=== PATIENT | female | born 1970 | race Two or more races ===

== ENCOUNTER 2023-03-05 17:59 | Emergency (ER) | payer OTHER, SELFPAY ==
[2023-03-05 19:12] LABS: Absolute Lymphocytes (CBC) 3.2 K/uL (0.7-4.9); Hematocrit 38.5 % (36.0-45.0); Lymphocytes % 47.8 % (15.3-44.8); MCV 89.8 fL (80-100); RBC Red Blood Cell Count 4.28 M/uL (3.86-4.86)
[2023-03-05 19:35] LABS: BUN Blood Urea Nitrogen 11 mg/dL (7-18); Bicarbonate 29 mEq/L (21-32); Glomerular Filtration Rate 98 ml/min (=/>90); Glucose Level 91 mg/dL (74-106); Potassium 3.9 mEq/L (3.5-5.1); Sodium Level 145 mEq/L (136-145)
[2023-03-05 19:38] LABS: Troponin High Sensitivity < 3.0 pg/mL (<58.9)
[2023-03-05] MEDS ORDERED: FAMOTIDINE 20 MG TAB ONE (20:09)
[2023-03-05] MEDS ORDERED: CETIRIZINE HCL 5 MG TABLET ONE (20:09)
--- NOTE | 2023-03-05 21:01 | ER ---
Nurse's Notes [facility] Name: Marline Escamilla Age: 52 yrs Sex: Female : 1970 Arrival Date: 03/05/2023 Time: 17:59 Bed 8 Private MD: Diagnosis: Edema, unspecified;Allergic rhinitis, unspecified;Acute serous otitis media, right ear Presentation: 03/05 18:18 Chief complaint: Patient states: woke up this morning with NIKKY hand swelling that has vg1 subsided, also noticed later in day NIKKY feet swelling that has also subsided and then noticed swelling to face and decide then to come to ED. Spouse stated facial swelling is starting to subside. Pt states was recently dx with an autoimmune disease, was positive for "Autoimmune Inflammatory marker" and was referred to Rheumatology. Coronavirus screen: Vaccine status: Patient reports receiving the 2nd dose of the covid vaccine. Client denies travel out of the [place] in the last 14 days. Ebola Screen: Patient negative for fever greater than or equal to 101.5 degrees Fahrenheit, and additional compatible Ebola Virus Disease symptoms Patient denies exposure to infectious person. Patient denies travel to an Ebola-affected area in the 21 days before illness onset. Initial Sepsis Screen: Does the patient meet any 2 criteria? No. Patient's initial sepsis screen is negative. Does the patient have a suspected source of infection? No. Patient's initial sepsis screen is negative. Risk Assessment: Do you want to hurt yourself or someone else? Patient reports no desire to harm self or others. Onset of symptoms was March 05, 2023. 18:18 Method Of Arrival: Ambulatory vg1 18:18 Acuity: LALITA 3 vg1 Triage Assessment: 18:21 General: Appears uncomfortable, Behavior is cooperative. Pain: Complains of pain in vg1 right foot and left foot Pain currently is 5 out of 10 on a pain scale. Neuro: Level of Consciousness is awake, alert, obeys commands, Oriented to person, place, time, situation. Musculoskeletal: Circulation, motion, and sensation intact. 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 - Social history:: Smoking status: Patient denies any tobacco usage or history of. Screenin:15 [facility] ED Fall Risk Assessment (Adult) History of falling in the last 3 months, rv including since admission No falls in past 3 months (0 pts). Abuse screen: Denies threats or abuse. Denies injuries from another. Nutritional screening: No deficits noted. Tuberculosis screening: No symptoms or risk factors identified. Assessment: 19:13 General: Appears comfortable, Behavior is calm, cooperative. Pain: Complains of pain in rv chest. Neuro: Level of Consciousness is awake, alert, obeys commands, Oriented to person, place, time, situation. Cardiovascular: Capillary refill < 3 seconds Rhythm is sinus rhythm Chest pain quality is sharp, is located in anterior. 20:04 Reassessment: Patient appears in no apparent distress at this time. Patient and/or as6 family updated on plan of care and expected duration. Pain level reassessed. Patient is alert, oriented x 3, equal unlabored respirations, skin warm/dry/pink. Vital Signs: 18:18 BP 113 / 77; Pulse 80; Resp 16; Temp 98.1(TE); Pulse Ox 100% on R/A; Weight 65.77 kg; vg1 Height 5 ft. 7 in. ; Pain 5/10; 18:59 BP 115 / 79; Pulse 77; Resp 18; Pulse Ox 100% on R/A; ld1 20:04 BP 112 / 80; Pulse 80; Resp 18 S; Pulse Ox 100% on R/A; as6 21:04 BP 116 / 81; Pulse 78; Resp 18; Temp 98.1(O); Pulse Ox 99% on R/A; rv 18:18 Body Mass Index 22.71 (65.77 kg, 170.18 cm) vg1 18:18 Pain Scale: Adult vg1 Joseph Coma Score: 21:04 Eye Response: spontaneous(4). Motor Response: obeys commands(6). Verbal Response: rv oriented(5). Total: 15. ED Course: 18:01 Patient arrived in ED. rg4 18:21 Triage completed. vg1 18:21 Arm band placed on. vg1 18:54 Cricket Cheney, DUANE is Primary Nurse. ll1 18:54 Inserted saline lock: 22 gauge in right antecubital area, using aseptic technique. ll1 Blood collected. 19:02 Melva Ratliff FNP-C is PSYCHIATRICP. snw 19:02 Rafat Jenkins MD is Attending Physician. snw 19:16 Patient has correct armband on for positive identification. Placed in gown. Bed in low rv position. Call light in reach. Client placed on continuous cardiac and pulse oximetry monitoring. NIBP monitoring applied. hall monitor on. 20:59 No provider procedures requiring assistance completed. IV discontinued, intact, as6 bleeding controlled, No redness/swelling at site. Pressure dressing applied. Administered Medications: 20:04 Drug: Famotidine PO 20 mg Route: PO; as6 20:28 Follow up: Response: No adverse reaction as6 20:04 Drug: ZyrTEC - Cetirizine PO 10 mg Route: PO; as6 20:28 Follow up: Response: No adverse reaction as6 Medication: 19:16 VIS not applicable for this client. rv Outcome: 21:00 Discharge ordered by . snw 21:06 Discharged to home ambulatory, with family. rv 21:06 Condition: improved 21:06 Discharge instructions given to patient, Instructed on discharge instructions, follow up and referral plans. medication usage, Demonstrated understanding of instructions, follow-up care, medications, Prescriptions given X 2. 21:06 Patient left the ED. rv Signatures: Melva Ratliff FNP-C FNP-Lyndsey Wood rg4 David Hernandez RN RN rv Abigail Luis, RN RN arnel1 Cricket Cheney RN RN ll1 Eulalia Fields, DUANE RN morro1 Bernard Zamora RN RN as6
--- NOTE | 2023-03-05 21:01 | EDPHYS ---
Physician Documentation [facility] Name: Marline Escamilla Age: 52 yrs Sex: Female : 1970 Arrival Date: 03/05/2023 Time: 17:59 Bed 8 Private MD: ED Physician Rafat Jenkins HPI: 03/05 20:00 This 52 yrs old Female presents to ER via Ambulatory with complaints of Facial snw Swelling, Hand Swelling, Feet Swelling. 20:00 pt states she is just not feeling well, right face, eye, and head feel full, partner snw noted swelling to right jaw today. Onset: The symptoms/episode began/occurred acutely. Severity of symptoms: At their worst the symptoms were mild moderate in the emergency department the symptoms are unchanged. It is unknown whether or not the patient has had similar symptoms in the past. It is unknown whether or not the patient has recently seen a physician. 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 - Social history:: Smoking status: Patient denies any tobacco usage or history of. ROS: 19:58 Constitutional: Negative for fever, chills, and weight loss, Eyes: Negative for injury, snw pain, redness, and discharge. 19:58 ENT: Positive for nasal discharge, sinus congestion, right side of face with swelling that has now resolved. Exam: 19:58 Constitutional: This is a well developed, well nourished patient who is awake, alert, snw and in no acute distress. Head/Face: Normocephalic, atraumatic. Eyes: Pupils equal round and reactive to light, extra-ocular motions intact. Lids and lashes normal. Conjunctiva and sclera are non-icteric and not injected. Cornea within normal limits. Periorbital areas with no swelling, redness, or edema. Neck: Trachea midline, no thyromegaly or masses palpated, and no cervical lymphadenopathy. Supple, full range of motion without nuchal rigidity, or vertebral point tenderness. No Meningismus. Chest/axilla: Normal chest wall appearance and motion. Nontender with no deformity. No lesions are appreciated. Cardiovascular: Regular rate and rhythm with a normal S1 and S2. No gallops, murmurs, or rubs. Normal PMI, no JVD. No pulse deficits. Respiratory: Lungs have equal breath sounds bilaterally, clear to auscultation and percussion. No rales, rhonchi or wheezes noted. No increased work of breathing, no retractions or nasal flaring. Abdomen/GI: Soft, non-tender, with normal bowel sounds. No distension or tympany. No guarding or rebound. No evidence of tenderness throughout. Back: No spinal tenderness. No costovertebral tenderness. Full range of motion. Skin: Warm, dry with normal turgor. Normal color with no rashes, no lesions, and no evidence of cellulitis. MS/ Extremity: Pulses equal, no cyanosis. Neurovascular intact. Full, normal range of motion. Neuro: Awake and alert, GCS 15, oriented to person, place, time, and situation. Cranial nerves II-XII grossly intact. Motor strength 5/5 in all extremities. Sensory grossly intact. Cerebellar exam normal. Normal gait. Psych: Awake, alert, with orientation to person, place and time. Behavior, mood, and affect are within normal limits. 19:58 ENT: Ear canal(s): are normal, TM's: erythema, that is mild, on the right, Nose: is normal, Mouth: is normal, Posterior pharynx: is normal, Voice: is normal. Vital Signs: 18:18 BP 113 / 77; Pulse 80; Resp 16; Temp 98.1(TE); Pulse Ox 100% on R/A; Weight 65.77 kg; vg1 Height 5 ft. 7 in. ; Pain 5/10; 18:59 BP 115 / 79; Pulse 77; Resp 18; Pulse Ox 100% on R/A; ld1 20:04 BP 112 / 80; Pulse 80; Resp 18 S; Pulse Ox 100% on R/A; as6 21:04 BP 116 / 81; Pulse 78; Resp 18; Temp 98.1(O); Pulse Ox 99% on R/A; rv 18:18 Body Mass Index 22.71 (65.77 kg, 170.18 cm) [facility] ([place], [place]) 18:18 Pain Scale: Adult vg1 Joseph Coma Score: 21:04 Eye Response: spontaneous(4). Motor Response: obeys commands(6). Verbal Response: rv oriented(5). Total: 15. MDM: 19:04 Patient medically screened. snw 20:01 Differential Diagnosis sepsis, flu, viral illness. Data reviewed: vital signs, nurses snw notes, lab test result(s). I considered the following discharge prescriptions or medication management in the emergency department Medications were administered in the Emergency Department. See MAR. Historians other than the Patient: Spouse/Significant Other: Sig other. Counseling: I had a detailed discussion with the patient and/or guardian regarding: the historical points, exam findings, and any diagnostic results supporting the discharge/admit diagnosis, the need for outpatient follow up, for definitive care, to return to the emergency department if symptoms worsen or persist or if there are any questions or concerns that arise at home. Special discussion: Based on the history and exam findings, there is no indication for further emergent testing or inpatient evaluation. I discussed with the patient/guardian the need to see the primary care provider for further evaluation of the symptoms. 03/05 18:43 Order name: CBC with Diff; Complete Time: 19:15 bs3 03/05 18:43 Order name: BMP; Complete Time: 19:40 bs3 03/05 18:43 Order name: Troponin High Sensitivity; Complete Time: 19:40 bs3 03/05 18:43 Order name: EKG - Nurse/Tech; Complete Time: 19:13 bs3 EC:10 Rate is 78 beats/min. Rhythm is regular. QRS [place] is Normal. [place] interval is normal. QRS snw interval is normal. QT interval is normal. Clinical impression: NSR w/ Non-specific ST/T Changes. Administered Medications: 20:04 Drug: Famotidine PO 20 mg Route: PO; as6 20:28 Follow up: Response: No adverse reaction as6 20:04 Drug: ZyrTEC - Cetirizine PO 10 mg Route: PO; as6 20:28 Follow up: Response: No adverse reaction as6 Disposition Summary: 03/05/23 21:00 Discharge Ordered Location: Home snw Condition: Stable snw Diagnosis - Edema, unspecified snw - Allergic rhinitis, unspecified snw - Acute serous otitis media, right ear snw Followup: snw - With: Emergency Department - When: As needed - Reason: Worsening of condition Followup: snw - With: Private Physician - When: 2 - 3 days - Reason: Recheck today's complaints, Continuance of care, Re-evaluation by your physician Discharge Instructions: - Discharge Summary Sheet snw - Allergies, Adult snw - Otitis Media, Adult snw - Edema snw Forms: - Medication Reconciliation Form snw - Thank You Letter snw - Antibiotic Education snw - Prescription Opioid Use snw Prescriptions: - Zyrtec 10 mg Oral Tablet - take 1 tablet by ORAL route once daily As needed; 20 tablet; Refills: 0, snw Product Selection Permitted - Pepcid 20 mg Oral Tablet - take 1 tablet by ORAL route once daily; 20 tablet; Refills: 0, Product snw Selection Permitted Signatures: Dispatcher [employer] EDMS Melva Ratliff FNP-C TUNNEL KILN OPERATOR-Isaiahw Abigail Luis, RN RN vg1 Bernard Zamora, RN RN as6 Rafat Jenkins MD MD bs3 Corrections: (The following items were deleted from the chart) 20:00 19:58 ENT: Ear canal(s): are normal, TM's: erythema, that is mild, on the left, Nose: snw is normal, Mouth: is normal, Posterior pharynx: is normal, Voice: is normal, snw
[2023-03-05 21:11] VITALS: TEMP 98.1
[2023-03-05 21:16] VITALS: BP 116/81; O2SAT 99
--- NOTE | 2023-03-06 10:15 | EKG ---
Test Date: 2023-03-05 Test Time: 19:04:30 [employer] Blind[employer]ch: RV MEASUREMENT RESULTS: Intervals: Rate: 78 VT: 156 QRSD: 78 QT: 392 QTc: 446 [place]: P: 75 VT: 156 QRS: 41 T: 46 INTERPRETIVE STATEMENTS: Normal sinus rhythm Normal ECG No previous ECG available for comparison Electronically Signed On 03-06-23 10:13:35 CDT by Ariel Mark
== END 2023-03-05 21:06 | disposition home or self-care (01) ==
LOC: ER 17:59 → EDBD 17:59 → ER 21:06
DX: J30.9 Allergic rhinitis, unspecified (principal); H65.01 Acute serous otitis media, right ear; R60.9 Edema, unspecified
CPT/HCPCS: 36415; 80048; 84484; 85025; 93005; 99284